=== PATIENT | male | born 1955 | race Caucasian/White ===

== ENCOUNTER 2020-07-30 07:34 | Day surgery (SDC) | payer MEDICARE, MEDICAID, SELFPAY ==
[2020-07-25 15:58] VITALS: BMI 29.0
--- NOTE | 2020-07-26 11:53 | MHC.SHP ---
Pre-Procedural Eval Section A The patient is an INPATIENT: No The History & Physical has been completed within 30 days and I have reviewed it.: Yes Section B Chief Complaint: cataract Allergies: Allergies Allergy/AdvReac Type Severity Reaction Status Date / Time No Known Allergies Allergy Verified 07/25/20 15:52 Plan Diagnosis/Plan: Unchanged Patient has been examined and remains a candidate for the planned procedure
--- NOTE | 2020-07-27 12:04 | HO.ANESPROP2 ---
Documented by User: Beverly Laws 07/27/20 13:29 HPI - Anesthesia Eval Consult details Narrative: 65yo M for Cataract Extraction No prev cataract PCP cleared [facility] Past Medical History Medical History Costochondral chest pain Diabetes Elevated cholesterol HTN (hypertension) Osteoarthritis Peripheral neuropathy Surgical History Surgical History Hx of sinus surgery Social History Social History Smoking Status: Former smoker Smoking Quit Date: 1989 Use of substances other than those prescribed or required for medical reasons: No Advance Directives: No Advance Directives Information Provided: No Advance Directives on File: No Meds Allergies Allergy/AdvReac Type Severity Reaction Status Date / Time No Known Allergies Allergy Verified 07/25/20 15:52 Home Medications Medication Instructions Recorded Confirmed Type acetaminophen [Tylenol Arthritis] 1,300 mg PO Q8H PRN 07/25/20 07/25/20 History amlodipine 5 mg PO DAILY 07/25/20 07/25/20 History aspirin [Aspir-81] 81 mg PO DAILY 07/25/20 07/25/20 History candesartan 32 mg PO DAILY 07/25/20 07/25/20 History carvedilol [Coreg] 12.5 mg PO BID 07/25/20 07/25/20 History cholecalciferol (vitamin D3) 50 mcg PO DAILY 07/25/20 07/25/20 History [Vitamin D3] glipizide 5 mg PO BID 07/25/20 07/25/20 History hydrochlorothiazide 25 mg PO DAILY 07/25/20 07/25/20 History metformin 500 mg PO BID 07/25/20 07/25/20 History repaglinide 1 mg PO TID 07/25/20 07/25/20 History simvastatin 40 mg PO BEDTIME 07/25/20 07/25/20 History Exam Exam Date and Time: July 27, 2020 1204 Height,Weight and Vital Signs: Height 5 ft 7 in Weight 83.915 kg Narrative Narrative: EKG 02/2020: NSR@64 ECHO 07/25/20: LVEF 60-65%, no wma Documented by User: Cooper Mackenzie 07/30/20 09:25 [facility] Past Medical History Medical History Costochondral chest pain Diabetes Elevated cholesterol HTN (hypertension) Osteoarthritis Peripheral neuropathy Surgical History Surgical History Hx of sinus surgery Social History Social History Smoking Status: Former smoker Smoking Quit Date: 1989 Use of substances other than those prescribed or required for medical reasons: No Advance Directives: No Advance Directives Information Provided: No Advance Directives on File: No Meds Allergies Allergy/AdvReac Type Severity Reaction Status Date / Time No Known Allergies Allergy Verified 07/25/20 15:52 Home Medications Medication Instructions Recorded Confirmed Type acetaminophen [Tylenol Arthritis] 1,300 mg PO Q8H PRN 07/25/20 07/25/20 History amlodipine 5 mg PO DAILY 07/25/20 07/25/20 History aspirin [Aspir-81] 81 mg PO DAILY 07/25/20 07/25/20 History candesartan 32 mg PO DAILY 07/25/20 07/25/20 History carvedilol [Coreg] 12.5 mg PO BID 07/25/20 07/25/20 History cholecalciferol (vitamin D3) 50 mcg PO DAILY 07/25/20 07/25/20 History [Vitamin D3] glipizide 5 mg PO BID 07/25/20 07/25/20 History hydrochlorothiazide 25 mg PO DAILY 07/25/20 07/25/20 History metformin 500 mg PO BID 07/25/20 07/25/20 History repaglinide 1 mg PO TID 07/25/20 07/25/20 History simvastatin 40 mg PO BEDTIME 07/25/20 07/25/20 History Exam Airway Mallampati Class: II TM Dist: >3cm Neck ROM: Full Loose/Missing/Broken Teeth: No Heart: [id number] Lungs: cta b/l Assessment and Plan Assessment Anesthesia Assessment: Anesthesia Plan Discussed, PAT Visit and Chart Reviewed Final Anesthetic Review NPO: Yes ASA Class: III Final Preanesthetic Review: No Changes in Pt Med Stat, Meds/Allgs Chart Reviewed, Consent Obtained/Reviewed and Anes Risks/Benef Reviewed Patient Risk: Intermediate Procedure Risk: Low Assessment/Block/Sedation in SS: Assess/Block/Sedation-SS Anesthetic Plan Anesthetic Plan: MAC: Disposition: Standard PACU
[2020-07-30 08:27] VITALS: BP 133/79; PULSE 65; RESP 16; TEMP 36.9; O2SAT 95
[2020-07-30] MEDS: Lactated Ringers 500 ML 50 ML IV (08:37)
[2020-07-30] MEDS: Tetracaine HCl/PF 0.5% Oph Sol 4 ML DROPS 1 DROP EYE-RIGHT (08:37)
[2020-07-30] MEDS: Tropicamide 1 % Ophth Sol 3 ML BTL 1 DROP EYE-RIGHT ×3 (08:39→08:49)
[2020-07-30] MEDS: Phenylephrine HCL 2.5% Oph SoL 2 ML BOTTLE 1 DROP EYE-RIGHT ×3 (08:43→08:51)
[2020-07-30 08:54] LABS: Glucose, Whole Blood 124 mg/dL (60-115)
[2020-07-30 10:02] VITALS: BP 135/84; PULSE 70; RESP 16; TEMP 36.2; O2SAT 99
--- NOTE | 2020-07-30 10:02 | HO.PNOPHT ---
Ophthalmology Procedure Procedure Date of Service: 07/30/20 Ophthalmology Viscoelastic: Neal Johnsont Dual Pack Pro Ophthalmology Lenses: TECGERA [id number] (19) Procedure Notes: PREOPERATIVE DIAGNOSIS: Decreased visual acuity right eye secondary to cataract POSTOPERATIVE DIAGNOSIS: Same PROCEDURE: Right cataract extraction with intraocular lens insertion SURGEON: Imtiaz Enamorado M.D. ANESTHESIA: Topical/MAC ESTIMATED BLOOD LOSS: None COMPLICATIONS: None After obtaining informed consent, the patient was brought to the operating room suite and placed in the supine position. After adequate sedation per anesthesia, topical drops of Tetracaine were given to the right eye. The eye was then prepped and draped in the usual sterile fashion. The operating room microscope was then positioned over the operative eye and a lid speculum placed. A paracentesis was created. Viscoelastic was then instilled into the anterior chamber. A three plane incision was then created temporally, utilizing a 2.85 mm keratome. Capsulotomy forceps were then utilized to create a circular tear capsulotomy. Hydrodissection and hydrodelineation were carried out until adequate mobilization of the nucleus occurred. Phacoemulsification was then utilized to remove the dense central nucleus followed by removal of the cortical material utilizing the automated aspiration irrigation unit. Viscoelastic was instilled into the posterior capsular bag followed by placement of a posterior chamber intraocular lens without difficulty. The residual Viscoelastic was then removed utilizing the automated IA machine. The wound was checked and found to be watertight. The patient tolerated the procedure well and the lid speculum was removed. Intracameral injection of Vigamox 0.1 mL followed by a subtenon injection of Kenalog-40 0.2 mL were administered. The patient will be seen in the a.m.
--- NOTE | 2020-07-30 12:25 | HO.POSTANES ---
Post Anesthesia Evaluation Post Anesthesia Evaluation Vital Signs: Vital Signs Temp Pulse Resp BP Pulse Ox 07/30/20 10:02 97.2 F 70 16 135/84 99 07/30/20 08:27 98.5 F 65 16 133/79 95 Anesthesia: Monitored Mental Status: Awake Pain Control: Satisfactory Nausea/Vomiting: None Hydration: Adequate Anesthesia-Related Issues: No Anes. Related Issues
== END 2020-07-30 10:10 | disposition home or self-care (01) ==
PROVIDERS: Visit Provider Ophthalmology
PROC: (CPT 66985; principal; 2020-07-30 09:20)
DX: H25.811 Combined forms of age-related cataract, right eye (principal); E11.9 Type 2 diabetes mellitus without complications; Z79.84 Long term (current) use of oral hypoglycemic drugs
CPT/HCPCS: 66984; 82947; J2250; J3010; J3300; V2632

== ENCOUNTER 2021-07-06 11:01 | Emergency (ER) | payer MEDICARE, MEDICAID, SELFPAY ==
[2021-07-06 11:17] VITALS: BP 122/80; PULSE 72; RESP 18; TEMP 36.4; O2SAT 97; BMI 29.0
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
== END 2021-07-06 12:21 | disposition home or self-care (01) ==
PROVIDERS: Emergency Provider Emergency Medicine Emergency Medical Services; PCP Internal Medicine Geriatric Medicine
DX: Z48.00 Encounter for change or removal of nonsurgical wound dressing (principal); E11.9 Type 2 diabetes mellitus without complications; I10 Essential (primary) hypertension; Z79.899 Other long term (current) drug therapy
CPT/HCPCS: 99283

== ENCOUNTER 2021-07-12 12:45 | Outpatient (RCR) | payer MEDICARE, MEDICAID, SELFPAY | END 2021-08-12 11:07 | disposition home or self-care (01) | LOC: HO.WCC 12:45 | PROVIDERS: PCP Internal Medicine Geriatric Medicine; Visit Provider Physician Assistant | DX: T22.212A Burn of second degree of left forearm, initial encounter (principal); T31.0 Burns involving less than 10% of body surface; X15.0XXA Contact with hot stove (kitchen), initial encounter; Y99.8 Other external cause status; E11.65 Type 2 diabetes mellitus with hyperglycemia; E11.40 Type 2 diabetes mellitus with diabetic neuropathy, unspecified; Z87.891 Personal history of nicotine dependence | CPT/HCPCS: 99212 ==

== ENCOUNTER 2021-08-12 12:26 | Outpatient (REF) | payer MEDICARE, MEDICAID, SELFPAY ==
--- NOTE | ~2021-08-12 | XR_ITS ---
EXAMINATION: XR SHOULDER, RIGHT CLINICAL INFORMATION: Right shoulder pain. COMPARISON: 10/29/2009 TECHNIQUE: AP external rotation, Grashey, scapular Y, and axillary views of the right shoulder. FINDINGS: Moderate acromioclavicular and mild glenohumeral osteoarthritis. Small marginal osteophytes are present at the glenoid. No fracture or malalignment. Soft tissues are unremarkable. Bone mineralization is normal. XR/XR shoulder RT min 2V IMPRESSION: Moderate acromioclavicular and mild glenohumeral osteoarthritis.
== END 2021-08-12 12:27 | disposition home or self-care (01) ==
LOC: HO.XRAY 12:26
PROVIDERS: PCP Nurse Practitioner Primary Care; Visit Provider Nurse Practitioner Primary Care
DX: M25.511 Pain in right shoulder (principal)
CPT/HCPCS: 73030

== ENCOUNTER 2021-10-21 09:57 | Day surgery (SDC) | payer MEDICARE, MEDICAID, SELFPAY ==
[2021-10-11 11:26] VITALS: BMI 28.1
--- NOTE | 2021-10-17 16:32 | MHC.SHP ---
Pre-Procedural Eval Section A Date of Service: 10/17/21 The patient is an INPATIENT: No Changes since office visit: No Cold of Flu in the past 2 weeks, No New Medical Problems, No Changes in Medication and No Patient answered all questions The History & Physical has been completed within 30 days and I have reviewed it.: Yes Section B Chief Complaint: cataract,eye hypertension Allergies: Allergies Allergy/AdvReac Type Severity Reaction Status Date / Time No Known Allergies Allergy Verified 07/25/20 15:52 Plan Diagnosis/Plan: Unchanged I have reviewed the history and physical and performed a pertinent physical examination on my patient. No changes have occurred unless specified.
--- NOTE | 2021-10-18 10:02 | HO.ANESPROP2 ---
Documented by User: Beverly Laws NP 10/18/21 10:03 HPI - Anesthesia Eval Consult details Narrative: 66yo M for Left Cataract Extraction IOL Trabeculectomy PCP cleared No previous cataract on record PMFSH Past Medical History Medical History (Updated 07/07/21 @ 00:02 by Alvarez Mcmillan) Costochondral chest pain Diabetes Elevated cholesterol HTN (hypertension) Osteoarthritis Peripheral neuropathy Surgical History Surgical History (Updated 10/11/21 @ 11:15 by Myranda Renner RN) H/O right cataract extraction Hx of sinus surgery Social History Social History Patient Tobacco Use Status: Never used Tobacco Use of substances other than those prescribed or required for medical reasons: No Are you DNR?: No Advance Directives: No Advance Directives Information Provided: Yes Advance Directives on File: No Meds Allergies Allergy/AdvReac Type Severity Reaction Status Date / Time No Known Allergies Allergy Verified 10/21/21 10:58 Home Medications Medication Instructions Recorded Confirmed Last Taken Type acetaminophen 650 mg 1,300 mg PO Q8H PRN 07/25/20 10/11/21 Unknown History tablet,extended release amlodipine 5 mg tablet 5 mg PO DAILY 07/25/20 10/11/21 07/30/20 06:00 History aspirin 81 mg tablet,delayed 81 mg PO DAILY 07/25/20 10/11/21 Unknown History release candesartan 32 mg tablet 32 mg PO DAILY 07/25/20 10/11/21 Unknown History carvedilol 12.5 mg tablet (Coreg) 12.5 mg PO BID 07/25/20 10/21/21 10/21/21 08:00 History cholecalciferol (vitamin D3) 50 50 mcg PO DAILY 07/25/20 10/11/21 Unknown History mcg (2,000 unit) capsule (Vitamin D3) glipizide 5 mg tablet 5 mg PO BID 07/25/20 10/11/21 Unknown History hydrochlorothiazide 25 mg tablet 25 mg PO DAILY 07/25/20 10/11/21 Unknown History metformin 500 mg tablet 500 mg PO BID 07/25/20 10/11/21 Unknown History repaglinide 1 mg tablet 1 mg PO TID 07/25/20 10/11/21 Unknown History simvastatin 40 mg tablet 40 mg PO BEDTIME 07/25/20 10/11/21 Unknown History Exam Exam Date and Time: October 18, 2021 1002 Height,Weight and Vital Signs: Height 5 ft 7 in Weight 81.647 kg Assessment and Plan Assessment Anesthesia Assessment: Chart Reviewed Documented by User: Karla Helms MD 10/21/21 11:02 [facility] Past Medical History Medical History (Updated 07/07/21 @ 00:02 by Alvarez Mcmillan) Costochondral chest pain Diabetes Elevated cholesterol HTN (hypertension) Osteoarthritis Peripheral neuropathy Family History Family history of problems with anesthesia: No Surgical History Surgical History (Updated 10/11/21 @ 11:15 by Myranda Renner RN) H/O right cataract extraction Hx of sinus surgery History of Problems with Anesthesia: No Social History Social History Patient Tobacco Use Status: Never used Tobacco Use of substances other than those prescribed or required for medical reasons: No Are you DNR?: No Advance Directives: No Advance Directives Information Provided: Yes Advance Directives on File: No Meds Allergies Allergy/AdvReac Type Severity Reaction Status Date / Time No Known Allergies Allergy Verified 10/21/21 10:58 Home Medications Medication Instructions Recorded Confirmed Last Taken Type acetaminophen 650 mg 1,300 mg PO Q8H PRN 07/25/20 10/11/21 Unknown History tablet,extended release amlodipine 5 mg tablet 5 mg PO DAILY 07/25/20 10/11/21 07/30/20 06:00 History aspirin 81 mg tablet,delayed 81 mg PO DAILY 07/25/20 10/11/21 Unknown History release candesartan 32 mg tablet 32 mg PO DAILY 07/25/20 10/11/21 Unknown History carvedilol 12.5 mg tablet (Coreg) 12.5 mg PO BID 07/25/20 10/21/21 10/21/21 08:00 History cholecalciferol (vitamin D3) 50 50 mcg PO DAILY 07/25/20 10/11/21 Unknown History mcg (2,000 unit) capsule (Vitamin D3) glipizide 5 mg tablet 5 mg PO BID 07/25/20 10/11/21 Unknown History hydrochlorothiazide 25 mg tablet 25 mg PO DAILY 07/25/20 10/11/21 Unknown History metformin 500 mg tablet 500 mg PO BID 07/25/20 10/11/21 Unknown History repaglinide 1 mg tablet 1 mg PO TID 07/25/20 10/11/21 Unknown History simvastatin 40 mg tablet 40 mg PO BEDTIME 07/25/20 10/11/21 Unknown History Exam Airway Mallampati Class: II TM Dist: >3cm Neck ROM: Full Heart: rrr Lungs: cta Assessment and Plan Assessment Anesthesia Assessment: Anesthesia Plan Discussed and Chart Reviewed Final Anesthetic Review Family History of Problems with Anesthesia: No History of Problems with Anesthesia: No NPO: Yes ASA Class: III Final Preanesthetic Review: No Changes in Pt Med Stat, Meds/Allgs Chart Reviewed and Consent Obtained/Reviewed Patient Risk: Intermediate Procedure Risk: Intermediate Anesthetic Plan Anesthetic Plan: MAC: Disposition: Standard PACU
[2021-10-21 11:03] VITALS: BP 140/84; PULSE 66; RESP 16; TEMP 36.7; O2SAT 95
[2021-10-21 11:05] LABS: Glucose, Whole Blood 159 mg/dL (60-115)
[2021-10-21] MEDS: Tetracaine HCl/PF 0.5% Oph Sol 4 ML DROPS 1 DROP EYE-LEFT (11:05)
[2021-10-21] MEDS: Tropicamide 1 % Ophth Sol 3 ML BTL 1 DROP EYE-LEFT ×3 (11:06→11:18)
[2021-10-21] MEDS: Phenylephrine HCL 2.5% Oph SoL 2 ML BOTTLE 1 DROP EYE-LEFT ×3 (11:10→11:22)
[2021-10-21] MEDS: Lactated Ringers 500 ML 50 ML IV (11:20)
--- NOTE | 2021-10-21 12:36 | HO.PNOPHT ---
Ophthalmology Procedure Procedure Date of Service: 10/21/21 Ophthalmology Viscoelastic: Healon Duet Dual Pack Pro Ophthalmology Lenses: TECGERA [id number] (18) Procedure Notes: PREOPERATIVE DIAGNOSIS: Decreased visual acuity left eye secondary to cataract and glaucoma POSTOPERATIVE DIAGNOSIS: Same PROCEDURE: Left cataract extraction with intraocular lens insertion and trabeculectomy, left eye SURGEON: Imtiaz Enamorado M.D. ANESTHESIA: Topical/MAC ESTIMATED BLOOD LOSS: None COMPLICATIONS: None After obtaining informed consent, the patient was brought to the operating room suite and placed in the supine position. After adequate sedation per anesthesia, topical drops of Tetracaine were given to the left eye. The eye was then prepped and draped in the usual sterile fashion. The operating room microscope was then positioned over the left eye and a lid speculum placed. 2% Lidocaine was instilled subconjunctivally. After awaiting 30 seconds, a paracentesis was created superiorly. Hemostasis was then achieved using wet field cautery. Mitomycin .4mg/ml was then placed in the conjunctival pocket and held in place for two minutes. The subconjunctival pocket was then irrigated copiously with 20 mls of BSS. Paracentesis was then created. Viscoelastic was then instilled into the anterior chamber. A crescent blade was then utilized to create a partial thickness sclera wound followed by advancement to clear cornea with the crescent blade. A keratome was then utilized to enter the anterior chamber. Capsulotomy forceps were then utilized to create a continuous circular tear capsulotomy. Hydrodissection and hydrodelineation were carried out until adequate mobilization of the nucleus occurred. Phacoemulsification was utilized to remove the dense central nucleus followed by removal of remnant cortical material utilizing the automated aspiration irrigation unit. Viscoelastic was then instilled into the posterior capsular bag followed by placement of a posterior chamber intraocular lens. Attention was then directed to create a trabeculectomy. A Tamika punch was then utilized to create the trabeculectomy. The residual Viscoelastic was then removed utilizing the automated IA machine. The egress of aqueous was evaluated and found to be appropriate. The conjunctiva was then closed with a 9-0 vicryl suture. BSS was then instilled into the anterior chamber creating a superior bleb, without obvious leakage. Intracameral injection of Vigamox 0.3%, 0.1 ml and subtenon injection of Kenalog-40 0.2 ml was given followed by an atropine drop. The patient tolerated the procedure well and will be followed up in the a.m.
[2021-10-21 13:25] VITALS: BP 123/84; PULSE 71; RESP 16; TEMP 36.7; O2SAT 98
== END 2021-10-21 13:42 | disposition home or self-care (01) ==
PROVIDERS: Visit Provider Ophthalmology
PROC: (CPT 66984; principal; 2021-10-21 12:50)
DX: H25.12 Age-related nuclear cataract, left eye (principal); H40.9 Unspecified glaucoma; H40.052 Ocular hypertension, left eye; G62.9 Polyneuropathy, unspecified; E11.9 Type 2 diabetes mellitus without complications; I10 Essential (primary) hypertension; E78.5 Hyperlipidemia, unspecified; Z79.84 Long term (current) use of oral hypoglycemic drugs; Z79.82 Long term (current) use of aspirin; Z79.899 Other long term (current) drug therapy
CPT/HCPCS: 66984; 66170; 82947; J2250; J3010; J3300; J7315; V2632

== ENCOUNTER 2022-08-20 13:12 | Emergency (ER) | payer MEDICARE, MEDICAID, SELFPAY ==
--- NOTE | ~2022-08-20 | XR_ITS ---
EXAMINATION: XR CHEST CLINICAL INFORMATION: Cough chest pain and shortness of breath COMPARISON: Previous chest x-ray February 2020 TECHNIQUE: 2 views of the chest were obtained. FINDINGS: No significant abnormality is noted involving the heart, lungs, mediastinum, bony thorax or soft tissues. Degenerative changes of the spine. XR/XR chest 2V IMPRESSION: Unremarkable examination.
[2022-08-20 13:21] VITALS: BP 144/86; PULSE 83; RESP 16; TEMP 36.6; O2SAT 95; BMI 28.1
--- NOTE | 2022-08-20 13:21 | ED.ASTHMA ---
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 Otherwise he denies any GI or symptoms. <Ijeoma Burns MD - Last Filed: 08/20/22 14:50> Related Data Home Medications: Home Medications Medication Instructions Recorded Confirmed acetaminophen 650 mg 1,300 mg PO Q8H PRN Pain 07/25/20 10/11/21 tablet,extended release amlodipine 5 mg tablet 5 mg PO DAILY 07/25/20 10/11/21 aspirin 81 mg tablet,delayed 81 mg PO DAILY 07/25/20 10/11/21 release candesartan 32 mg tablet 32 mg PO DAILY 07/25/20 10/11/21 carvedilol 12.5 mg tablet (Coreg) 12.5 mg PO BID 07/25/20 10/21/21 cholecalciferol (vitamin D3) 50 50 mcg PO DAILY 07/25/20 10/11/21 mcg (2,000 unit) capsule (Vitamin D3) glipizide 5 mg tablet 5 mg PO BID 07/25/20 10/11/21 hydrochlorothiazide 25 mg tablet 25 mg PO DAILY 07/25/20 10/11/21 metformin 500 mg tablet 500 mg PO BID 07/25/20 10/11/21 repaglinide 1 mg tablet 1 mg PO TID 07/25/20 10/11/21 simvastatin 40 mg tablet 40 mg PO BEDTIME 07/25/20 10/11/21 Previous Rx's Medication Instructions Recorded bacitracin zinc 500 unit/gram 1 appl topical BID #28 grams 07/06/21 topical ointment benzonatate 200 mg capsule 200 mg PO TID PRN cough #14 caps 08/20/22 <JUSTO Mendoza - Last Filed: 08/20/22 13:26> Allergies/Adverse Reactions: Allergies Allergy/AdvReac Type Severity Reaction Status Date / Time No Known Allergies Allergy Verified 08/20/22 13:25 <JUSTO Mendoza - Last Filed: 08/20/22 13:26> Review of Systems Review of Systems: Pertinent positives and negatives as stated in HPI. <Ijeoma Burns MD - Last Filed: 08/20/22 14:50> [facility] Past Medical History Source: nursing notes reviewed <Ijeoma Burns MD - Last Filed: 08/20/22 14:50> Medical History: Medical History Costochondral chest pain Diabetes Elevated cholesterol HTN (hypertension) Osteoarthritis Peripheral neuropathy <JUSTO Mendoza - Last Filed: 08/20/22 13:26> Surgical History: Surgical History H/O right cataract extraction Hx of sinus surgery <JUSTO Mendoza - Last Filed: 08/20/22 13:26> Social History Social History: Social History Patient Tobacco Use Status: Never used Tobacco Advance Directives: No Advance Directives Information Provided: Yes <JUSTO Mendoza - Last Filed: 08/20/22 13:26> Physical Exam Vital Signs: Vital Signs: Last Vital Signs Temp 97.8 F 08/20/22 13:21 Pulse 83 08/20/22 13:21 Resp 16 08/20/22 13:21 BP 144/86 H 08/20/22 13:21 Pulse Ox 95 08/20/22 13:21 O2 Del Method 08/20/22 13:21 BMI result Body Mass Index 28.1 <JUSTO Mendoza - Last Filed: 08/20/22 13:26> Vital Signs: Last Vital Signs Temp 97.8 F 08/20/22 13:21 Pulse 83 08/20/22 13:21 Resp 16 08/20/22 13:21 BP 144/86 H 08/20/22 13:21 Pulse Ox 95 08/20/22 13:21 O2 Del Method 08/20/22 13:21 BMI result Body Mass Index 28.1 VITAL SIGNS: Reviewed. GENERAL: Well developed, well nourished, in no acute distress. HEAD: Normocephalic/atraumatic EYES: PERRLA, EOMI EARS: Ext canals without abnormality, TMs non-bulging and non-erythematous NOSE: Nares patent bilateral OROPHARYNX: no oral lesions noted, posterior pharynx clear and non-erythematous without noted tonsillar enlargement/erythema/exudates NECK: Supple, no adenopathy LUNGS: Normal breath sounds, mild tachypnea. No adventitious sounds or accessory muscle use. SpO2<95> CARDIOVASCULAR: Regular rate and rhythm without noted murmurs, no JVD or lower extremity edema. ABDOMEN: Soft, non-tender, non-distended with bowel sounds. MUSCULOSKELETAL: No tenderness, deformities, or effusions noted on gross inspection. EXTREMITIES: No cyanosis, clubbing or edema. SKIN: Inspection of the skin reveals no rashes NEUROLOGIC: Alert and oriented x 4. Strength and sensation to light touch were grossly intact x 4. <Ijeoma Burns MD - Last Filed: 08/20/22 14:50> Course Course Course Narrative: 13:21 - RME - 67 yo male with history of DM, HTN who presents to the ER with SOB and chest pain associated with coughing for 1 week. He states he has been using his asthma pump without relief. Unknown if fevers at home. No known sick contacts. Pain is across entire chest and worse with coughing. VSS. LLL coarse but not wheezing. Will check EKG, CXR, viral swabs, and basic labs. stable to go to waiting room until room is available. <JUSTO Mendoza - Last Filed: 08/20/22 13:26> Reevaluation(s) Reevaluation #1: Patient has influenza a and is outside the window for Tamiflu treatment, the results were communicated to him and he was instructed to continue with Tylenol ibuprofen as needed for headache, chest wall pain, drink plenty of fluids and he will be given a prescription for Tessalon. <Ijeoma Burns MD - Last Filed: 08/20/22 14:50> Time: 14:47 <Ijeoma Burns MD - Last Filed: 08/20/22 14:50> Medical Decision Making Medical Decision Making MDM Narrative: 67-year-old male with no history of asthma or COPD presents with increased shortness of breath and cough related chest wall pain and suspect patient has viral illness. Very low clinical suspicion for pneumonia or cardiac etiology. Labs, EKG, viral testing has been ordered. I also provided the patient with cough medication as well as combination analgesics. <Ijeoma Burns MD - Last Filed: 08/20/22 14:50> Lab Data Result Diagrams: : 08/20/22 13:44 08/20/22 13:44 <JUSTO Mendoza - Last Filed: 08/20/22 13:26> Labs: Lab Results 08/20/22 08/20/22 08/20/22 Range/Units 13:44 13:44 13:44 WBC 7.8 (4.8-10.8) X10*3/uL RBC 5.16 (4.60-5.80) X10*6/uL Hgb 13.6 L (14.0-18.0) g/dl Hct 40.8 L (42.0-52.0) % MCV 79.1 L (80.0-98.0) fL MCH 26.4 L (27.0-33.0) pg MCHC 33.3 (31.0-36.0) g/dl RDW 12.7 (11.0-16.0) % Plt Count 230 (160-400) X10*3/uL MPV 10.1 (9.4-12.4) fL Immature Gran % (Auto) 0.4 (0.0-0.4) % Neut % (Auto) 74.9 H (45-73) % Lymph % (Auto) 7.4 L (20-40) % [place] % (Auto) 4.3 (2-11) % Eos % (Auto) 12.5 H (0-4) % Baso % (Auto) 0.5 (0-2) % Lymph # (Auto) 0.6 L (1.2-4.9) X10*3/uL [place] # (Auto) 0.3 (0.1-1.2) X10*3/uL Eos # (Auto) 1.0 H (0.0-0.4) X10*3/uL Baso # (Auto) 0.0 (0.0-0.2) X10*3/uL Abs Immat Gran (auto) 0.03 (0.00-0.03) X10*3/uL Absolute Neuts (auto) 5.9 (2.0-8.3) x10*3/uL Absolute Nucleated RBC 0.000 (0.0-0.012) X10*3/uL Nucleated RBC % (auto) 0.0 (0.0-0.2) /100WBC Troponin I High Sens 5.1 (<3.5-35.0) ng/L B-Natriuretic Peptide 43 (<100) pg/mL Urine Color Urine Appearance Urine pH (5.0-9.0) Ur Specific Landing (1.005-1.025) Urine Protein (Neg-Trace) mg/dL Urine Glucose (UA) (Negative) mg/dL Urine Ketones (Negative) mg/dL Urine Blood (Negative) Urine Nitrite (Negative) Ur Leukocyte Esterase (Negative) Urine RBC (0-2) /HPF Urine WBC (0-5) /HPF Ur Squamous Epith Cells (0-2) /HPF Urine Bacteria (None Seen) Hyaline Casts (0-2) /LPF Influenza Type A (PCR) (Negative) Influenza Type B (PCR) (Negative) RSV RNA Qual (PCR) (Negative) SARS-CoV-2 RNA (RT-PCR) (Negative) 08/20/22 08/20/22 Range/Units 13:44 13:44 WBC (4.8-10.8) X10*3/uL RBC (4.60-5.80) X10*6/uL Hgb (14.0-18.0) g/dl Hct (42.0-52.0) % MCV (80.0-98.0) fL MCH (27.0-33.0) pg MCHC (31.0-36.0) g/dl RDW (11.0-16.0) % Plt Count (160-400) X10*3/uL MPV (9.4-12.4) fL Immature Gran % (Auto) (0.0-0.4) % Neut % (Auto) (45-73) % Lymph % (Auto) (20-40) % [place] % (Auto) (2-11) % Eos % (Auto) (0-4) % Baso % (Auto) (0-2) % Lymph # (Auto) (1.2-4.9) X10*3/uL [place] # (Auto) (0.1-1.2) X10*3/uL Eos # (Auto) (0.0-0.4) X10*3/uL Baso # (Auto) (0.0-0.2) X10*3/uL Abs Immat Gran (auto) (0.00-0.03) X10*3/uL Absolute Neuts (auto) (2.0-8.3) x10*3/uL Absolute Nucleated RBC (0.0-0.012) X10*3/uL Nucleated RBC % (auto) (0.0-0.2) /100WBC Troponin I High Sens (<3.5-35.0) ng/L B-Natriuretic Peptide (<100) pg/mL Urine Color Dark Yellow Urine Appearance Clear Urine pH 6.0 (5.0-9.0) Ur Specific Landing >= 1.030 H (1.005-1.025) Urine Protein 30 (1+) H (Neg-Trace) mg/dL Urine Glucose (UA) 250 H (Negative) mg/dL Urine Ketones Trace (Negative) mg/dL Urine Blood Small (1+) H (Negative) Urine Nitrite Negative (Negative) Ur Leukocyte Esterase Negative (Negative) Urine RBC 11-20 H (0-2) /HPF Urine WBC 0-5 (0-5) /HPF Ur Squamous Epith Cells 0-2 (0-2) /HPF Urine Bacteria None Seen (None Seen) Hyaline Casts 0-2 (0-2) /LPF Influenza Type A (PCR) POSITIVE A (Negative) Influenza Type B (PCR) NEGATIVE (Negative) RSV RNA Qual (PCR) NEGATIVE (Negative) SARS-CoV-2 RNA (RT-PCR) NEGATIVE (Negative) <JUSTO Mendoza - Last Filed: 08/20/22 13:26> Lab Results 08/20/22 08/20/22 08/20/22 Range/Units 13:44 13:44 13:44 WBC 7.8 (4.8-10.8) X10*3/uL RBC 5.16 (4.60-5.80) X10*6/uL Hgb 13.6 L (14.0-18.0) g/dl Hct 40.8 L (42.0-52.0) % MCV 79.1 L (80.0-98.0) fL MCH 26.4 L (27.0-33.0) pg MCHC 33.3 (31.0-36.0) g/dl RDW 12.7 (11.0-16.0) % Plt Count 230 (160-400) X10*3/uL MPV 10.1 (9.4-12.4) fL Immature Gran % (Auto) 0.4 (0.0-0.4) % Neut % (Auto) 74.9 H (45-73) % Lymph % (Auto) 7.4 L (20-40) % [place] % (Auto) 4.3 (2-11) % Eos % (Auto) 12.5 H (0-4) % Baso % (Auto) 0.5 (0-2) % Lymph # (Auto) 0.6 L (1.2-4.9) X10*3/uL [place] # (Auto) 0.3 (0.1-1.2) X10*3/uL Eos # (Auto) 1.0 H (0.0-0.4) X10*3/uL Baso # (Auto) 0.0 (0.0-0.2) X10*3/uL Abs Immat Gran (auto) 0.03 (0.00-0.03) X10*3/uL Absolute Neuts (auto) 5.9 (2.0-8.3) x10*3/uL Absolute Nucleated RBC 0.000 (0.0-0.012) X10*3/uL Nucleated RBC % (auto) 0.0 (0.0-0.2) /100WBC Troponin I High Sens 5.1 (<3.5-35.0) ng/L B-Natriuretic Peptide 43 (<100) pg/mL Urine Color Urine Appearance Urine pH (5.0-9.0) Ur Specific Landing (1.005-1.025) Urine Protein (Neg-Trace) mg/dL Urine Glucose (UA) (Negative) mg/dL Urine Ketones (Negative) mg/dL Urine Blood (Negative) Urine Nitrite (Negative) Ur Leukocyte Esterase (Negative) Urine RBC (0-2) /HPF Urine WBC (0-5) /HPF Ur Squamous Epith Cells (0-2) /HPF Urine Bacteria (None Seen) Hyaline Casts (0-2) /LPF Influenza Type A (PCR) (Negative) Influenza Type B (PCR) (Negative) RSV RNA Qual (PCR) (Negative) SARS-CoV-2 RNA (RT-PCR) (Negative) 08/20/22 08/20/22 Range/Units 13:44 13:44 WBC (4.8-10.8) X10*3/uL RBC (4.60-5.80) X10*6/uL Hgb (14.0-18.0) g/dl Hct (42.0-52.0) % MCV (80.0-98.0) fL MCH (27.0-33.0) pg MCHC (31.0-36.0) g/dl RDW (11.0-16.0) % Plt Count (160-400) X10*3/uL MPV (9.4-12.4) fL Immature Gran % (Auto) (0.0-0.4) % Neut % (Auto) (45-73) % Lymph % (Auto) (20-40) % [place] % (Auto) (2-11) % Eos % (Auto) (0-4) % Baso % (Auto) (0-2) % Lymph # (Auto) (1.2-4.9) X10*3/uL [place] # (Auto) (0.1-1.2) X10*3/uL Eos # (Auto) (0.0-0.4) X10*3/uL Baso # (Auto) (0.0-0.2) X10*3/uL Abs Immat Gran (auto) (0.00-0.03) X10*3/uL Absolute Neuts (auto) (2.0-8.3) x10*3/uL Absolute Nucleated RBC (0.0-0.012) X10*3/uL Nucleated RBC % (auto) (0.0-0.2) /100WBC Troponin I High Sens (<3.5-35.0) ng/L B-Natriuretic Peptide (<100) pg/mL Urine Color Dark Yellow Urine Appearance Clear Urine pH 6.0 (5.0-9.0) Ur Specific Landing >= 1.030 H (1.005-1.025) Urine Protein 30 (1+) H (Neg-Trace) mg/dL Urine Glucose (UA) 250 H (Negative) mg/dL Urine Ketones Trace (Negative) mg/dL Urine Blood Small (1+) H (Negative) Urine Nitrite Negative (Negative) Ur Leukocyte Esterase Negative (Negative) Urine RBC 11-20 H (0-2) /HPF Urine WBC 0-5 (0-5) /HPF Ur Squamous Epith Cells 0-2 (0-2) /HPF Urine Bacteria None Seen (None Seen) Hyaline Casts 0-2 (0-2) /LPF Influenza Type A (PCR) POSITIVE A (Negative) Influenza Type B (PCR) NEGATIVE (Negative) RSV RNA Qual (PCR) NEGATIVE (Negative) SARS-CoV-2 RNA (RT-PCR) NEGATIVE (Negative) <Ijeoma Burns MD - Last Filed: 08/20/22 14:50> Discharge Plan Discharge Clinical Impression: Viral syndrome, Influenza A <JUSTO Mendoza - Last Filed: 08/20/22 13:26> Patient Disposition: Home, Self-Care <JUSTO Mendoza - Last Filed: 08/20/22 13:26> Instructions: Influenza (ED), Viral Syndrome (ED) <JUSTO Mendoza - Last Filed: 08/20/22 13:26> Additional Instructions: 1. Reanudar todos los medicamentos caseros seg?n lo prescrito. 2. Recomendar Tylenol/ibuprofeno de venta aleja seg?n sea necesario para deshawn corporales, dolor en la pared tor?cica, deshawn de joy, temperaturas superiores a 100.4. Aumente la cantidad de agua que camryn. 3. No duerma en alena posici?n plana y, en hager lugar, duerma ligeramente inclinado para reducir la cantidad de tos nocturna. 4. Cecilia un seguimiento con hager proveedor de atenci?n primaria los pr?ximos 2 a 3 d?as para alena reevaluaci?n. Regrese a la beena de emergencias si los s?ntomas empeoran. 1. Resume all home medications as prescribed. 2. Recommend uars-tak-fnqeunp Tylenol/ibuprofen as needed for body aches, chest wall pain, headaches, temperatures greater than 100.4. Increase the amount of water that you drink. 3. Do not sleep in a flat position and instead sleep at a slight incline to reduce the amount of nighttime coughing. 4. Follow-up with your primary care provider next 2-3 days for re-evaluation. Return to the ER for worsening symptoms. <JUSTO Mendoza - Last Filed: 08/20/22 13:26> Prescriptions: New benzonatate 200 mg capsule 200 mg PO TID PRN (Reason: cough) Qty: 14 0RF No Action metformin 500 mg Tablet 500 mg PO BID carvedilol [Coreg] 12.5 mg Tablet 12.5 mg PO BID simvastatin 40 mg Tablet 40 mg PO BEDTIME acetaminophen [Tylenol Arthritis] 650 mg Tablet Extended Release 1,300 mg PO Q8H PRN (Reason: Pain) candesartan 32 mg Tablet 32 mg PO DAILY hydrochlorothiazide 25 mg Tablet 25 mg PO DAILY glipizide 5 mg Tablet 5 mg PO BID repaglinide 1 mg Tablet 1 mg PO TID cholecalciferol (vitamin D3) [Vitamin D3] 50 mcg (2,000 unit) Capsule 50 mcg PO DAILY amlodipine 5 mg Tablet 5 mg PO DAILY aspirin [Aspir-81] 81 mg Tablet,Delayed Release (Dr/Ec) 81 mg PO DAILY bacitracin zinc 500 unit/gram ointment 1 appl topical BID Qty: 28 0RF <JUSTO Mendoza - Last Filed: 08/20/22 13:26> Referrals: [facility] [Primary Care Provider] - <JUSTO Mendoza Last Filed: 08/20/22 13:26> Print Language: Pashto <JUSTO Mendoza - Last Filed: 08/20/22 13:26>
--- NOTE | 2022-08-20 13:24 | ECG_ITS ---
Test Reason : SOB Blood Pressure : / mmHG Vent. Rate : 082 BPM Atrial Rate : 082 BPM P-R Int : 164 ms QRS Dur : 126 ms QT Int : 406 ms P-R-T Axes : 042 036 013 degrees QTc Int : 474 ms Normal sinus rhythm Right bundle branch block Abnormal ECG When compared with ECG of 28-FEB-2020 13:46, Right bundle branch block is now Present Referred By: Fatimah Hanna Electronically Signed By:BERYL MEDINA MD
[2022-08-20 13:52] LABS: MANUAL DIFF FLAG NO
[2022-08-20 13:57] LABS: Appearance Urine Clear; Basophils Percent Auto 0.5 % (0-2); Color Urine Dark Yellow; Eosinophils Percent Auto 12.5 % (0-4); Glucose Urine UA 250 mg/dL (Negative); Hematocrit 40.8 % (42.0-52.0); Hemoglobin 13.6 g/dl (14.0-18.0); Imm Gran Abs Auto 0.03 X10*3/uL (0.00-0.03); Imm Gran Pct Auto 0.4 % (0.0-0.4); Leukocyte Esterase Urine Negative (Negative); Lymphocytes Absolute Auto 0.6 X10*3/uL (1.2-4.9); Lymphocytes Percent Auto 7.4 % (20-40); Mean Corpuscular HGB Conc 33.3 g/dl (31.0-36.0); Mean Corpuscular Hemoglobin 26.4 pg (27.0-33.0); Mean Corpuscular Volume 79.1 fL (80.0-98.0); Mean Platelet Volume 10.1 fL (9.4-12.4); Monocytes Absolute Auto 0.3 X10*3/uL (0.1-1.2); Monocytes Percent Auto 4.3 % (2-11); Neutrophils Absolute Auto 5.9 x10*3/uL (2.0-8.3); Neutrophils Percent Auto 74.9 % (45-73); Nitrite Urine Negative (Negative); Platelet Count 230 X10*3/uL (160-400); Red Blood Count 5.16 X10*6/uL (4.60-5.80); Red Cell Distribution Width 12.7 % (11.0-16.0); Specific Gravity - Urine >= 1.030 (1.005-1.025); UMIC TRIGGER UACC YES; Urine Blood Small (1+) (Negative); Urine Ketones Trace mg/dL (Negative); Urine Protein 30 (1+) mg/dL (Neg-Trace); White Blood Count 7.8 X10*3/uL (4.8-10.8)
[2022-08-20 14:01] LABS: Bacteria Urine None Seen (None Seen); Hyaline Casts Urine 0-2 /LPF (0-2); Squamous Epithelial Cell Urine 0-2 /HPF (0-2); WBC Urine 0-5 /HPF (0-5)
[2022-08-20 14:24] LABS: B Type Natriuretic Peptide 43 pg/mL (<100); Troponin-I High Sensitivity 5.1 ng/L (<3.5-35.0)
--- NOTE | 2022-08-20 14:30 | PC.NURSE ---
patient assessed with use of clinical laboratory medical director , primary language Anguillan . A/ox4 . sheeba . heart rate regular at 80 beats per minute . breathing even and unlabored . lungs clear throughout . dry non productive cough . skin pink wamr and dry . abdomen soft not tender positive bowel sounds in all four quadrants labs sent . patient aware of plan of care .
[2022-08-20 14:39] LABS: Influenza A PCR POSITIVE (Negative); Influenza B PCR NEGATIVE (Negative); Resp Syncy Virus RNA Qual PCR NEGATIVE (Negative); SARS COV2 PCR INHOUSE NEGATIVE (Negative)
[2022-08-20 14:57] LABS: Alanine Aminotransferase 28 U/L (0-40); Albumin Level 4.4 g/dL (3.5-5.0); Alkaline Phosphatase 60 U/L (39-117); Anion Gap 14 (12-20); Aspartate Amino Transferase 23 U/L (5-37); Bilirubin Direct < 0.2 mg/dL (0.0-0.5); Bilirubin Total 0.4 mg/dL (0.0-1.0); Blood Urea Nitrogen 11 mg/dL (9-16); Carbon Dioxide 29 mmol/L (22-29); Chloride 100 mmol/L (96-108); Creatinine Clr Calc Pharmacy 71.1; Estimated Glomerular Filt Rate > 60; Glucose Random 245 mg/dL (60-115); Magnesium 1.3 mg/dL (1.6-2.6); Sodium 139 mmol/L (135-145); Total Protein 7.3 g/dL (6.5-8.0)
[2022-08-20] MEDS: Acetaminophen 325 MG TABLET 975 MG PO (15:02)
[2022-08-20] MEDS: Ibuprofen 400 MG TABLET PO (15:02)
[2022-08-20] MEDS: Benzonatate 100 MG CAPSULE 200 MG PO (15:02)
[2022-08-20 15:24] VITALS: BP 136/76; PULSE 80; RESP 16; TEMP 36.9; O2SAT 94
[2022-08-20] MEDS: Magnesium Oxide 400 MG TABLET 800 MG PO (15:27)
--- NOTE | 2022-08-20 15:33 | PC.NURSE ---
Patient given oral Magnesium supplement for low mag level of 1.3 prior to discharge . patient informed to follow up with primary care .
--- NOTE | 2022-08-20 15:34 | PC.NURSE ---
patient a/ox4 . VSS . went over discharge instructions as ordered by provider . patient to follow up with primary care . patient to return if symptoms worsen . no questions at this time .
== END 2022-08-20 15:35 | disposition home or self-care (01) ==
PROVIDERS: Physician Assistant; Emergency Provider Student in an Organized Health Care Education/Training Program
DX: J10.1 Influenza due to other identified influenza virus with other respiratory manifestations (principal); B34.9 Viral infection, unspecified; R06.02 Shortness of breath; I10 Essential (primary) hypertension; E11.9 Type 2 diabetes mellitus without complications; R05.9 Cough, unspecified; Z20.822 Contact with and (suspected) exposure to COVID-19; Z79.899 Other long term (current) drug therapy
CPT/HCPCS: 0241U; 36415; 71046; 80048; 80076; 81001; 83735; 83880; 84484; 85025; 93005; 99283; 99285

== ENCOUNTER 2022-09-12 09:35 | Outpatient (REF) | payer MEDICARE, MEDICAID, SELFPAY ==
--- NOTE | ~2022-09-12 | XR_ITS ---
EXAMINATION: XR PRE-MRI SCREENING CLINICAL INFORMATION: Patient safety. Evaluate for metallic foreign body. COMPARISON: None TECHNIQUE: Radiographs of orbits, 3 views FINDINGS: No radiopaque foreign body in either orbit. Paranasal sinuses are well developed, well aerated, without air-fluid levels. Calvarium is unremarkable. No suspicious bone lesion. XR/XR pre mri screening IMPRESSION: No metallic foreign body in either orbit.
--- NOTE | ~2022-09-12 | MR_ITS ---
EXAMINATION: MR head/brain wo con CLINICAL INFORMATION: ISCHEMIC ATTACK, 3 HR NEUROLOGIC [id number] W/SLURRED SPEECH COMPARISON: Report CT head 03/28/2010 TECHNIQUE: Routine unenhanced MRI of the brain FINDINGS: Diffusion-weighted images demonstrate no evidence of acute infarcts. Mild diffuse commensurate prominence of ventricles and sulci is noted along with mild scattered periventricular and subcortical white matter punctate T2 hyperintensities. Susceptibility weighted images reveal no evidence of acute or chronic hemorrhage within the brain parenchyma. The craniocervical junction cerebellar tonsils are normal in configuration. Mild pannus formation is noted along the posterior dens. No suspicious marrow abnormalities. Normal flow-related signal intensity is identified in the major intracranial vessels and dural sinuses. Bilateral ocular lens extractions are visualized. Mild mucosal thickening and retained secretions are noted in the left frontal sinus and scattered anterior left ethmoid air cells. Minimal mucosal thickening and retained secretions are present bilaterally in the maxillary sinuses. No mastoid or middle ear cavity effusions are visualized. MR/MR head/brain wo con IMPRESSION: *No acute intracranial abnormalities. No acute infarcts or intracranial hemorrhage. *Mild chronic microangiopathic ischemic changes. *Mild mucosal thickening and retained secretions within the left frontal sinus, anterior left ethmoid air cells and maxillary sinuses which may correlate with sinusitis.
== END 2022-09-12 09:36 | disposition home or self-care (01) ==
LOC: HO.MRI 09:35
PROVIDERS: Visit Provider Nurse Practitioner Primary Care
DX: R29.818 Other symptoms and signs involving the nervous system (principal); Z86.73 Personal history of transient ischemic attack (TIA), and cerebral infarction without residual deficits
CPT/HCPCS: 70551

== ENCOUNTER 2023-10-28 10:25 | Outpatient (REF) | payer OTHER, MEDICAID, SELFPAY ==
[2023-10-28 12:11] LABS: Microalbum/Creatinine Ratio Ur 32.9 ug/mg cr (<30)
[2023-10-28 12:45] LABS: Vitamin B12 264 pg/mL (200-900)
[2023-10-28 12:55] LABS: Alanine Aminotransferase 18 U/L (0-40); Albumin Level 4.3 g/dL (3.5-5.0); Alkaline Phosphatase 58 U/L (39-117); Anion Gap 10 (12-20); Aspartate Amino Transferase 16 U/L (5-37); Bilirubin Total 0.3 mg/dL (0.0-1.0); Blood Urea Nitrogen 14 mg/dL (9-16); Calcium 9.7 mg/dL (8.4-10.2); Carbon Dioxide 30 mmol/L (22-29); Chloride 103 mmol/L (96-108); Cholesterol 177 mg/dL (<200); Estimated Glomerular Filt Rate > 60; Glucose Random 142 mg/dL (60-115); HDL Cholesterol 36 mg/dL (>40); LDL Cholesterol Calculated 77 mg/dL (<100); Potassium 3.4 mmol/L (3.3-5.1); Sodium 140 mmol/L (135-145); Total Protein 7.7 g/dL (6.5-8.0); Triglycerides 320 mg/dL (<150)
== END 2023-10-28 10:26 | disposition home or self-care (01) ==
LOC: HO.HHCL 10:25
PROVIDERS: Visit Provider Nurse Practitioner Primary Care
DX: E11.65 Type 2 diabetes mellitus with hyperglycemia (principal)
CPT/HCPCS: 36415; 80053; 80061; 82043; 82570; 82607